=== PATIENT | female | born 1990 | race American Indian/Alaskan Native ===

== ENCOUNTER 2019-02-02 16:07 | Emergency (ER) | payer BC ==
[2019-02-02 16:28] VITALS: BP 123/58
[2019-02-02] MEDS ORDERED: ASPIRIN PO ONE (16:29)
--- NOTE | 2019-02-02 16:30 | Emergency Department Report ---
Chief Complaint: Chest Pain Stated Complaint: CHEST PAIN Time Seen by Provider: 02/02/19 16:26 - HPI History of Present Illness: This is a 29 y.o. female that presents with substernal chest pain x 3 days. Patient states pain is worse while eating. She tried tums with minimal improvement. States pain feel like a balloon squeezing. - ROS Review of Systems: substernal chest pain - Exam Vital Signs: Vital Signs 02/02/19 16:26 Temperature 97.7 F Pulse Rate 78 Respiratory 20 Rate Blood Pressure 123/58 O2 Sat by Pulse 98 Oximetry MSE screening note: Focused history and physical exam performed. Due to findings the following was ordered: labs, ekg, cxr ED Disposition for MSE Condition: Stable
[2019-02-02 17:21] LABS: Basophils % (Auto) 0.3 % (0.0-1.8); Eosinophils # (Auto) 0.1 K/mm3 (0.0-0.4); Eosinophils % (Auto) 1.4 % (0.0-4.3); Hematocrit 34.8 % (30.3-42.9); Hemoglobin 12.1 gm/dl (10.1-14.3); Lymphocytes # (Auto) 2.7 K/mm3 (1.2-5.4); Lymphocytes % (Auto) 34.5 % (13.4-35.0); Mean Corpuscular HGB Conc 35 % (30-34); Mean Corpuscular Volume 94 fl (79-97); Monocytes # (Auto) 0.5 K/mm3 (0.0-0.8); Monocytes % (Auto) 6.9 % (0.0-7.3); Platelet Count 297 K/mm3 (140-440); Red Blood Count 3.71 M/mm3 (3.65-5.03); Red Cell Distribution Width 14.6 % (13.2-15.2)
[2019-02-02 17:34] LABS: BUN/Creatinine Ratio 18; Blood Urea Nitrogen 11 mg/dL (7-17); Calcium 9.7 mg/dL (8.4-10.2); Hemolysis Index 0
[2019-02-02] MEDS ORDERED: ALUM-MAG HYDROX-SIMETH 200-200-20MG/5ML PO ONE (19:10)
[2019-02-02] MEDS ORDERED: LIDOCAINE VISCOUS 2% PO ONE (19:10)
--- NOTE | 2019-02-02 19:16 | XRay Report ---
PROCEDURE: XR CHEST 1V AP TECHNIQUE: AP view of the chest HISTORY: Chest Pain COMPARISONS: None FINDINGS: The cardiomediastinal silhouette is within normal limits. No pulmonary infiltrate is seen. There is m ild right apical pleural thickening. No pneumothorax. IMPRESSION: No radiographic evidence of acute cardiopulmonary disease process This document is electronically signed by Jenise Jameson MD., February 02 2019 07:14:06 PM ET
[2019-02-02] MEDS ORDERED: BENTYL PO ONE (19:30)
--- NOTE | 2019-02-02 19:33 | Emergency Department Report ---
ED General Adult HPI - General Chief complaint: Chest Pain Stated complaint: CHEST PAIN Time Seen by Provider: 02/02/19 16:26 Source: patient Mode of arrival: Ambulatory Limitations: No Limitations - History of Present Illness Initial comments: Pt is a 29 yo female who presents to the ED with c/o substernal CP that began a week ago. She states it feels like a squeezing. She denies any radiation of the pain. The patient states it is worse after eating and when laying flat at night. She states that her stomach "feels hungry and like it is empty." She denies any N/V or exertional SOB. She denies any recent long car/plane ride, surgery, immobilization, OCP use, or unilateral LE edema. Severity scale (0 -10): 10 - Related Data Home Medications Medication Instructions Recorded Confirmed Last Taken Fluticasone [Flonase] 1 spray NS QDAY 08/12/16 08/12/16 Unknown Previous Rx's Medication Instructions Recorded Last Taken Type Cetirizine HCl [ZyrTEC] 10 mg PO QDAY #7 capsule 08/12/16 Unknown Rx Famotidine [Pepcid] 20 mg PO BID #30 tablet 02/02/19 Unknown Rx Simethicone 125 mg PO DAILY PRN #20 capsule 02/02/19 Unknown Rx Allergies Allergy/AdvReac Type Severity Reaction Status Date / Time No Known Allergies Allergy Unverified 01/22/16 11:56 ED Review of Systems ROS: Stated complaint: CHEST PAIN Other details as noted in HPI Comment: All other systems reviewed and negative ED Past Medical Hx - Past Medical History Previous Medical History?: Yes Hx Kidney Stones: Yes Additional medical history: ectopic - Surgical History Past Surgical History?: Yes - Social History Smoking Status: Never Smoker Substance Use Type: Alcohol - Medications Home Medications: Home Medications Medication Instructions Recorded Confirmed Last Taken Type Cetirizine HCl [ZyrTEC] 10 mg PO QDAY #7 capsule 08/12/16 Unknown Rx Fluticasone [Flonase] 1 spray NS QDAY 08/12/16 08/12/16 Unknown History Famotidine [Pepcid] 20 mg PO BID #30 tablet 02/02/19 Unknown Rx Simethicone 125 mg PO DAILY PRN #20 capsule 02/02/19 Unknown Rx ED Physical Exam - General Limitations: No Limitations General appearance: alert, in no apparent distress - Head Head exam: Present: atraumatic, normocephalic - Eye Eye exam: Present: normal appearance - ENT ENT exam: Present: mucous membranes moist - Respiratory Respiratory exam: Present: normal lung sounds bilaterally. Absent: respiratory distress, wheezes, rales, rhonchi, stridor, chest wall tenderness, accessory muscle use, decreased breath sounds, prolonged expiratory - Cardiovascular Cardiovascular Exam: Present: regular rate, normal rhythm, normal heart sounds. Absent: systolic murmur, rubs, gallop - GI/Abdominal GI/Abdominal exam: Present: soft, normal bowel sounds. Absent: distended, tenderness, guarding, rebound, rigid - Extremities Exam Extremities exam: Absent: pedal edema - Neurological Exam Neurological exam: Present: alert, oriented X3 - Psychiatric Psychiatric exam: Present: normal affect, normal mood - Skin Skin exam: Present: warm, dry, intact ED Course Vital Signs 02/02/19 02/02/19 02/02/19 16:26 19:15 21:32 Temperature 97.7 F Pulse Rate 78 82 Respiratory 20 18 115 H Rate Blood Pressure 123/58 O2 Sat by Pulse 98 99 Oximetry ED Medical Decision Making - Lab Data Result diagrams: 02/02/19 17:07 02/02/19 17:07 - EKG Data EKG shows normal: sinus rhythm, axis, intervals, QRS complexes Rate: normal - EKG Data 02/02/19 19:32 no STEMI, T wave inversions in V1, V2 - Radiology Data Radiology results: report reviewed TECHNIQUE: AP view of the chest HISTORY: Chest Pain COMPARISONS: None FINDINGS: The cardiomediastinal silhouette is within normal limits. No pulmonary infiltrate is seen. There is mild right apical pleural thickening. No pneumothorax. IMPRESSION: No radiographic evidence of acute cardiopulmonary disease process This document is electronically signed by Jenise Jameson MD., February 02 2019 07:14:06 PM ET - Medical Decision Making Pt is a 29 yo female who presents to the ED with c/o substernal CP that began a week ago. She states it feels like a squeezing. Worse after eating and when laying flat at night. She states that her stomach "feels hungry and like it is empty." She denies any N/V or exertional SOB. She denies any recent long car/plane ride, surgery, immobilization, OCP use, or unilateral LE edema. Pt given GI cocktail and chest discomfort completely resolved. EKG is WNL. Trop negative x 2. CXR with no acute process. CP does not appear to be cardiac in nature. Most likely due to GERD/indigestion. Will prescribe pt medications. Advised to follow up with PCP in the next 2-3 days. Return to the ED for any new or worsening symptoms. - Differential Diagnosis GERD, Indigestion, Musculoskeletal Pain Critical care attestation.: If time is entered above; I have spent that time in minutes in the direct care of this critically ill patient, excluding procedure time. ED Disposition Clinical Impression: Indigestion GERD (gastroesophageal reflux disease) Qualifiers: Esophagitis presence: esophagitis presence not specified Qualified Code(s): K21.9 - Gastro-esophageal reflux disease without esophagitis Disposition: TO HOME OR SELFCARE Is pt being admited?: No Does the pt Need Aspirin: No Condition: Stable Instructions: Diet for Ulcers and Gastritis (ED), Gastroesophageal Reflux Disease (ED) Additional Instructions: Keep your appointment with your primary care doctor on 02/04/19. Take medication as prescribed. Follow diet recommendations for acid reflux. Return to the emergency room for any new or worsening symptoms. Prescriptions: Famotidine [Pepcid] 20 mg PO BID #30 tablet Simethicone 125 mg PO DAILY PRN #20 capsule PRN Reason: Indigestion Referrals: SANDI LING MD [Primary Care Provider] - 2-3 Days Time of Disposition: 21:22 Print Language: YAKUT
== END 2019-02-02 21:32 | disposition home or self-care (01) ==
LOC: ED 16:07
DX: K30 Functional dyspepsia (principal); K21.9 Gastro-esophageal reflux disease without esophagitis; Z87.442 Personal history of urinary calculi
CPT/HCPCS: 36415; 71045; 80048; 84484; 84703; 85025; 93005; 93010